=== PATIENT | male | born 1975 | race Caucasian/White ===

== ENCOUNTER → 2022-02-17 | Outpatient (CLI) | payer BC ==
[~2022-02-17] MED LIST: CETI10TA74 PO; DULO40CA2 PO; FLUT9.9S NS; LEVO75TA5 PO
== END ==
LOC: LAB 10:51
PROVIDERS: ATTEND Internal Medicine Gastroenterology
DX: Z01.812 Encounter for preprocedural laboratory examination (principal); Z20.822 Contact with and (suspected) exposure to COVID-19
CPT/HCPCS: U0003

== ENCOUNTER → 2022-02-21 | Day surgery (SDC) | payer BC ==
[~2022-02-21] MED LIST changes: +IPRATRPIUM/ALBUTEROL 0.5/2.5MG 3 ML NEBU. NEB PRN; +LIDOCAINE 2% PF 5 ML VIAL. ONE; +MIDAZOLAM HCL PF 2 MG/2 ML VIAL. IV ONE; +ONDANSETRON PF 4 MG/2 ML VIAL. IV PRN; +PROPOFOL 10,000 MCG/ML (20ML) VIAL IV ONE
[2022-02-21] MEDS: IV RINGERS SOLUTION,LACTATED 1,000 ML IV SCH ×2 (09:15→15:08)
[2022-02-21 16:04] VITALS: BP 130/90
== END | disposition home or self-care (01) ==
LOC: SURG 14:10
PROVIDERS: ATTEND Internal Medicine Gastroenterology
DX: Z12.11 Encounter for screening for malignant neoplasm of colon (principal); K63.5 Polyp of colon; K57.30 Diverticulosis of large intestine without perforation or abscess without bleeding; F32.9 Major depressive disorder, single episode, unspecified; F41.9 Anxiety disorder, unspecified; Z80.0 Family history of malignant neoplasm of digestive organs; Z72.89 Other problems related to lifestyle
CPT/HCPCS: 45385; J2001; J2704; J7120